=== PATIENT | male | born 1970 | race Caucasian/White ===

== ENCOUNTER 2024-09-27 11:37 | Outpatient (OUT) | payer OTHER, SELFPAY ==
--- NOTE | 2024-09-27 11:46 | ECG_ITS ---
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
--- NOTE | 2024-09-27 11:46 | XR_ITS ---
[address] [address] Patient Name: HORACIO [place] MRN: [id number] date: 1970 Sex: M Assigned Patient Location: [facility] [[email or web address] Current Patient Location: [facility] Accession/Order Number: [id number] Exam Date: 09/27/2024 12:30 Report Date: 09/27/2024 12:54 At the request of: AMARA PETTY Procedure: XR chest 2V EXAMINATION: XR chest 2V HISTORY: Preop exam COMPARISON: No relevant comparison available. TECHNIQUE: PA and lateral FINDINGS: LUNGS: No significant pulmonary parenchymal abnormalities. VASCULATURE: No increased pulmonary vasculature. PLEURA: No pneumothorax, effusion, or pleural thickening. CARDIAC: No cardiomegaly or cardiac silhouette abnormality. Valve replacement MEDIASTINUM: No visible mass or adenopathy. Median sternotomy wires BONES: No fracture or visible bone lesion. OTHER: Negative. XR/XR chest 2V IMPRESSION: No acute cardiopulmonary process Electronically authenticated by: ZOEY ABRAHAM Date: 09/27/2024 12:54
[2024-09-27 12:15] LABS: Basophils Absolute Auto 0.1 10^3/uL (0.0-0.1); Basophils Percent Auto 0.6 % (0.2-2.0); Eosinophils Absolute Auto 0.2 10^3/uL (0.0-0.7); Hematocrit 45.9 % (42.0-54.0); Hemoglobin 15.4 g/dL (14.0-18.0); Immature Granulocytes Abs Auto 0.06 10^3/uL (0.00-0.03); Immature Granulocytes Pct Auto 0.6 % (0.0-0.5); Lymphocytes Absolute Auto 2.5 10^3/uL (1.2-3.8); Lymphocytes Percent Auto 24.2 % (20.5-60.0); Mean Corpuscular HGB Conc 33.6 g/dL (29.9-35.2); Mean Corpuscular Volume 95.2 fL (80.0-94.0); Neutrophils Absolute Auto 6.5 10^3/uL (1.4-6.5); Neutrophils Percent Auto 62.6 % (43.0-75.0); Platelet Count 242 10^3/uL (150-450); Red Blood Count 4.82 10^6/uL (4.70-6.10); Red Cell Distribution Width 12.4 % (11.0-15.0); White Blood Count 10.3 10^3/uL (4.0-11.0)
[2024-09-27 12:31] LABS: INR 0.98; Partial Thromboplastin Time 27.5 sec (22.3-36.2); Prothrombin Time 10.4 sec (9.0-11.6)
[2024-09-27 12:44] LABS: Anion Gap 14.5; BUN Creatinine Ratio 13.1; Calcium 8.8 mg/dL (8.5-10.1); Carbon Dioxide 25.5 mmol/L (21.0-32.0); Chloride 103 mmol/L (98-107); Estimated GFR (African America >60 (>=60 mL/min/1.73m^2); Estimated GFR (Non-African Ame >60 (>=60 mL/min/1.73m^2); Glucose 88 mg/dL (74-106); Sodium 139 mmol/L (136-145)
== END 2024-09-27 11:38 | disposition home or self-care (01) ==
LOC: PST 11:41
PROVIDERS: PCP Nurse Practitioner Family; Visit Provider Urology
DX: Z01.810 Encounter for preprocedural cardiovascular examination (principal); Z01.812 Encounter for preprocedural laboratory examination; N20.0 Calculus of kidney
CPT/HCPCS: 71046; 80048; 85025; 85610; 85730; 93005

== ENCOUNTER 2024-09-28 08:18 | Day surgery (SDC) | payer OTHER, SELFPAY ==
[2024-09-27 12:22] VITALS: BP 154/88; PULSE 83; TEMP 36.5; O2SAT 97; BMI 39.6
[2024-09-28] VITALS (14 sets, daily range): BP systolic 120–159; BP diastolic 70–103; PULSE 69–92; TEMP 36.3–36.7; O2SAT 92–98; BMI 39.1
[2024-09-28 08:36] LABS: Glucometer 111 mg/dL (74-106)
[2024-09-28] MEDS: LACTATED RINGER'S SOLUTION 1,000 ML 50 ML IV ×3 (08:48→11:37)
[2024-09-28] MEDS: IPRATROPIUM/ALBUTEROL SULFATE 3 ML AMPUL.NEB IH (09:25)
[2024-09-28] MEDS: CEFAZOLIN SODIUM 2 GM/50 ML D5W PREMIX IV (09:34)
--- NOTE | 2024-09-28 10:32 | PM.URSON ---
Urology Surgery Operative Note Operative Note Procedure Date: 09/28/24 Time Out Performed: yes Pre-op Diagnosis: Right neph lithiasis Post-op Diagnosis: same as pre-op Procedures performed: 1. Cystoscopy. 2. Right ureteroscopy. 3. Right pyeloscopy. 4. Stone fragment basket extraction. 5. Thulium laser lithotripsy of right renal calculus. 6. Placement of 6 Liberian variable length right ureteral stent Anesthesia: DADA Primary Surgeon: Chu Vera Complications: None Estimated blood loss (mL): 5 Findings: Impacted right renal pelvis stone Specimens: Renal pelvis stone fragment Drains: 6 Liberian variable length right ureteral stent Indications for Procedures: This gentleman has a 7 to 8 mm right renal pelvis stone with inflammatory changes in the renal pelvis. He now presents for ureteroscopic stone manipulation and possible right stent placement. He has signed an informed consent after risks were explained. Detailed description of Procedure: The patient was brought to the operating room and placed on the operating room table in the supine position. SCDs were placed on the lower extremities and turned on and functioning during the entire case. Timeout was done by all parties in the room. We all agreed upon the patient's identification and the planned procedures for this patient. Genn. anesthesia was then administered. The patient was then repositioned into the modified dorsal lithotomy position. All pressure points were satisfactorily padded. Genitalia were sterilely prepped and draped in usual fashion. I started by passing a 22 Liberian Olympus cystoscope per urethra and into the bladder. Anterior urethra was normal. Prostatic urethra revealed by lobar obstruction. Panendoscopy in the bladder revealed no evidence of any tumors stones or lesions. I then passed a Glidewire through the scope and up the right ureter into the kidney. The scope was then removed. I then passed a 10/12 ureteral access sheath over the wire up the ureter to the L5 area. The wire and stylette were then removed. I then passed a flexible ureteroscope through the access sheath into the ureter and ascended up the ureter. Once I crossed into the renal pelvis I saw a large spiculated yellow stone with large amounts of clot attached to it and adjacent edema and inflammatory changes in the mucosa of the renal pelvis. I then passed a 270 Angstrom laser fiber through the scope and began doing lithotripsy on the dusting mode at 6 W with the thulium laser. I had to increase up to 10 W maximum. I was able to extract a large piece of the stone which was stuck to the laser fiber. This was sent for stone analysis. I then continued lasering this large stone. As it dusted pieces of it fell into the midpole of the kidney. I then chased them with the scope and completed the dusting. Fluoroscopically, we were unable to see any more stone. Endoscopically there was no more stone. I went into the upper mid and lower pole calyces and found no evidence of other stone. Because of the inflammatory changes in the renal pelvis the area did begin to ooze. Therefore I elected to place a stent. The scope was then removed. I then passed a Glidewire through the access sheath into the kidney and removed to the sheath. Cystoscope was backloaded over the wire and passed into the bladder and a 6 Liberian variable length stent was passed over the wire up to the kidney. The wire was removed and there were good curls in the kidney and in the bladder. The bladder was drained of its contents and the scope was then removed. He was then [facility] and wheeled to PACU in stable condition. He will be discharged to home later today with a prescription for cephalexin and Myrbetriq. The stent will come out in a week or 2
[2024-09-28] MEDS: [UNRECOGNIZED DRUG - OTHER] 1 TAB PO (10:42)
[2024-09-28] MEDS: SOLIFENACIN SUCCINATE 10 MG TABLET PO (10:42)
[2024-10-04 09:11] LABS: Size <1 mm (.)
== END 2024-09-28 12:50 | disposition home or self-care (01) ==
PROVIDERS: PCP Nurse Practitioner Family; Visit Provider Urology
PROC: (CPT 918; principal; 2024-09-28 09:30)
DX: N20.0 Calculus of kidney (principal); R35.1 Nocturia; Z95.1 Presence of aortocoronary bypass graft; F17.210 Nicotine dependence, cigarettes, uncomplicated; E78.5 Hyperlipidemia, unspecified; I11.0 Hypertensive heart disease with heart failure; I50.9 Heart failure, unspecified; I25.2 Old myocardial infarction; N40.0 Benign prostatic hyperplasia without lower urinary tract symptoms; E11.9 Type 2 diabetes mellitus without complications; Z79.84 Long term (current) use of oral hypoglycemic drugs
CPT/HCPCS: 00918; 52356; 36415; 76000; 82365; 82948; 94640; 99999; J0690; J1100; J1171; J1885; J2250; J2405; J2704; J3010